=== PATIENT | female | born 2000 | race Caucasian/White ===

== ENCOUNTER 2020-07-31 17:49 | Emergency (ER) | payer OTHER ==
[2020-07-31 18:07] VITALS: BP 102/73; PULSE 110; TEMP 100.8; BMI 27.4
== END 2020-07-31 20:47 | disposition home or self-care (01) ==
LOC: JER 17:49
DX: B34.9 Viral infection, unspecified (principal)
CPT/HCPCS: 71046-TC-FY; 99284-25; C9803; U0003

== ENCOUNTER 2022-05-18 12:17 | Emergency (ER) | payer OTHER ==
[2022-05-18 12:31] VITALS: BP 105/64; PULSE 67; RESP 18; TEMP 98.3; BMI 29.9
[2022-05-18] MEDS ORDERED: KETOROLAC TROMETHAMINE 30 MG/1 ML VIAL IVPUSH ONE (14:24)
[2022-05-18] MEDS ORDERED: SODIUM CHLORIDE 1,000 ML IV STA (14:24)
[2022-05-18] MEDS ORDERED: METOCLOPRAMIDE HCL INJECTION 10 MG/2 ML VIAL IVPUSH ONE (14:24)
[2022-05-18] MEDS ORDERED: METOCLOPRAMIDE HCL INJECTION 10 MG/2 ML VIAL ONE (14:37)
[2022-05-18] MEDS ORDERED: KETOROLAC TROMETHAMINE 30 MG/1 ML VIAL ONE (14:37)
== END 2022-05-18 16:32 | disposition home or self-care (01) ==
LOC: JER 12:17 → JERFT 12:17
PROC: 3E033GC Introduction of Other Therapeutic Substance into Peripheral Vein, Percutaneous Approach (ICD-10-PCS; principal; 2022-05-18)
PROC: 3E0333Z Introduction of Anti-inflammatory into Peripheral Vein, Percutaneous Approach (ICD-10-PCS; 2022-05-18)
PROC: 3E033GC Introduction of Other Therapeutic Substance into Peripheral Vein, Percutaneous Approach (ICD-10-PCS; 2022-05-18)
PROC: 3E0337Z Introduction of Electrolytic and Water Balance Substance into Peripheral Vein, Percutaneous Approach (ICD-10-PCS; 2022-05-18)
DX: J01.90 Acute sinusitis, unspecified (principal)
CPT/HCPCS: 84703; 99284-25

== ENCOUNTER 2023-07-31 22:34 | Observation (INO) | payer SELFPAY ==
[2023-07-31 22:54] VITALS: BMI 32.4
[2023-08-01] MEDS ORDERED: ONDANSETRON 4 MG/2 ML VIAL IVPUSH ONE
[2023-08-01] MEDS ORDERED: SODIUM CHLORIDE 1,000 ML IV STA
[2023-08-01] MEDS ORDERED: ACETAMINOPHEN 1000 MG/100 ML BAG IVPB ONE
[2023-08-01] MEDS ORDERED: ACETAMINOPHEN INJECTION 100 ML IVPB ONE (00:52)
[2023-08-01] MEDS ORDERED: ONDANSETRON 4 MG/2 ML VIAL ONE (00:52)
[2023-08-01] MEDS ORDERED: FAMOTIDINE 20 MG/50 ML IVPB 20 MG/50 ML MG IVPB ONE ×3 (00:52→10:33)
[2023-08-01 00:57] LABS: PH,URINE 6.5 (5.0-8.0); URINE APPEARANCE CLEAR; URINE BILIRUBIN NEGATIVE (NEGATIVE); URINE COLOR YELLOW; URINE GLUCOSE (UA) NEGATIVE (NEGATIVE); URINE KETONE NEGATIVE (NEGATIVE); URINE LEUK ESTERASE NEGATIVE (NEGATIVE); URINE NITRITE NEGATIVE (NEGATIVE); URINE PROTEIN NEGATIVE (NEGATIVE)
[2023-08-01 01:00] LABS: BASO % 0.1 % (0-2.0); EOS % 0.2 % (0-4.5); HEMATOCRIT 43.3 % (32.4-45.2); LYMPH % 5.8 % (8-40); MCH 27.9 pg (25.7-33.7); MCHC 32.5 g/dl (32.0-36.0); MEAN CELL VOLUME 85.9 fl (80-96); MONO % 5.6 % (3.8-10.2); NEUT % 88.3 % (42.8-82.8); RBC 5.04 M/mm3 (3.60-5.2); WHITE BLOOD COUNT 16.9 K/mm3 (4.0-10.0)
[2023-08-01 01:16] LABS: POTASSIUM 4.2 mmol/L (3.5-5.1)
[2023-08-01 01:19] LABS: ALBUMIN 3.5 g/dl (3.4-5.0); BLOOD UREA NITROGEN 11.1 mg/dL (7-18)
[2023-08-01 01:22] LABS: CREATININE 0.8 mg/dL (0.55-1.3)
[2023-08-01 01:23] LABS: BILIRUBIN,TOTAL 0.5 mg/dL (0.2-1); TOT PROT 6.7 g/dl (6.4-8.2)
[2023-08-01] MEDS: SODIUM CHLORIDE 1,000 ML IV SCH (06:55)
[2023-08-01 08:27] LABS: MAGNESIUM 2.2 mg/dL (1.8-2.4)
[2023-08-01 08:31] LABS: PHOSPHOROUS 3.6 mg/dL (2.5-4.9)
[2023-08-01] MEDS ORDERED: FOLIC ACID 1 MG TABLET (FP) ONE (09:03)
[2023-08-01] MEDS ORDERED: THIAMINE HCL 100 MG TABLET (FP) ONE (09:03)
[2023-08-01] MEDS: FOLIC ACID 1 MG TABLET (FP) PO SCH (09:08)
[2023-08-01] MEDS: THIAMINE HCL 100 MG TABLET (FP) PO SCH (09:08)
[2023-08-01] MEDS ORDERED: ONDANSETRON 4 MG/2 ML VIAL IVPUSH PRN (10:35)
[2023-08-01] MEDS: FAMOTIDINE 20 MG/50 ML IVPB 20 MG/50 ML MG IVPB SCH ×2 (10:39→23:12)
[2023-08-01] MEDS ORDERED: CEFTRIAXONE 1 GM in DEXTROSE 5%-WATER - 50 ML IVPB SCH (10:45)
[2023-08-01 11:17] LABS: BASO % 0.1 % (0-2.0); EOS % 0.4 % (0-4.5); HEMATOCRIT 38.9 % (32.4-45.2); HEMOGLOBIN 12.9 GM/dL (10.7-15.3); LYMPH % 15.2 % (8-40); MCH 28.7 pg (25.7-33.7); MCHC 33.1 g/dl (32.0-36.0); MEAN CELL VOLUME 86.5 fl (80-96); MEAN PLT VOLUME 8.8 fl (7.5-11.1); MONO % 11.6 % (3.8-10.2); NEUT % 72.7 % (42.8-82.8); PLATELET COUNT 236 10^3/uL (134-434); RBC 4.49 M/mm3 (3.60-5.2); RDW 14.2 % (11.6-15.6)
[2023-08-01 11:43] LABS: POTASSIUM 4.1 mmol/L (3.5-5.1)
[2023-08-01 11:46] LABS: CALCIUM 8.6 mg/dL (8.5-10.1)
[2023-08-01 11:47] LABS: ALBUMIN 3.2 g/dl (3.4-5.0); BLOOD UREA NITROGEN 5.3 mg/dL (7-18)
[2023-08-01 11:50] LABS: CREATININE 0.6 mg/dL (0.55-1.3)
[2023-08-01 11:51] LABS: BILIRUBIN,TOTAL 0.7 mg/dL (0.2-1)
[2023-08-01 11:52] LABS: TOT PROT 6.2 g/dl (6.4-8.2)
[2023-08-02] MEDS ORDERED: FAMOTIDINE 20 MG/50 ML IVPB 20 MG/50 ML MG IVPB ONE ×2 (00:45→10:09)
[2023-08-02 08:19] LABS: BASO % 0.1 % (0-2.0); EOS % 1.5 % (0-4.5); HEMATOCRIT 38.8 % (32.4-45.2); HEMOGLOBIN 12.9 GM/dL (10.7-15.3); LYMPH % 17.5 % (8-40); MCH 28.6 pg (25.7-33.7); MCHC 33.2 g/dl (32.0-36.0); MEAN CELL VOLUME 86.1 fl (80-96); MEAN PLT VOLUME 9.2 fl (7.5-11.1); MONO % 10.6 % (3.8-10.2); NEUT % 70.3 % (42.8-82.8); PLATELET COUNT 224 10^3/uL (134-434); RBC 4.51 M/mm3 (3.60-5.2); RDW 14.2 % (11.6-15.6); WHITE BLOOD COUNT 10.2 K/mm3 (4.0-10.0)
[2023-08-02 08:40] LABS: POTASSIUM 3.9 mmol/L (3.5-5.1)
[2023-08-02 08:43] LABS: BLOOD UREA NITROGEN 6.5 mg/dL (7-18)
[2023-08-02 08:45] LABS: ALBUMIN 3.3 g/dl (3.4-5.0)
[2023-08-02 08:47] LABS: CREATININE 0.6 mg/dL (0.55-1.3)
[2023-08-02 08:48] LABS: BILIRUBIN,TOTAL 0.3 mg/dL (0.2-1); TOT PROT 6.2 g/dl (6.4-8.2)
[2023-08-02] MEDS ORDERED: THIAMINE HCL 100 MG TABLET (FP) ONE (10:08)
[2023-08-02] MEDS ORDERED: FOLIC ACID 1 MG TABLET (FP) ONE (10:08)
[2023-08-02] MEDS: SODIUM CHLORIDE 1,000 ML IV SCH (10:28)
[2023-08-02] MEDS: FAMOTIDINE 20 MG/50 ML IVPB 20 MG/50 ML MG IVPB SCH (10:29)
[2023-08-02] MEDS: FOLIC ACID 1 MG TABLET (FP) PO SCH (10:29)
[2023-08-02] MEDS: THIAMINE HCL 100 MG TABLET (FP) PO SCH (10:29)
[2023-08-02 15:50] VITALS: BP 116/65; PULSE 81; RESP 18; TEMP 98.4
== END 2023-08-02 16:18 | disposition home or self-care (01) ==
LOC: JER 22:34 → JERBED 08-01 04:07
PROVIDERS: ADMIT Internal Medicine; ATTEND Internal Medicine
CPT/HCPCS: 0241U-QW; 36415; 76700-TC; 76817-TC; 80053; 80061; 81003; 83036; 83690; 83735; 84100; 84702; 84703; 85025; 86705; 86708; 87086; 87517; 93005; 93010; 99285-25; G0378

== ENCOUNTER 2025-03-15 19:23 | Emergency (ER) | payer OTHER ==
[2025-03-15 19:36] VITALS: BP 109/71; PULSE 82; RESP 18; TEMP 98.7; BMI 34.6
[2025-03-15] MEDS ORDERED: IBUPROFEN 600 MG TABLET (FP) PO ONE (21:33)
[2025-03-15] MEDS ORDERED: LORATADINE 10 MG TABLET ONE (21:33)
[2025-03-15] MEDS ORDERED: AMOX TR/POT CLAV 875MG/125MG TABLETS (FP) ONE (21:33)
[2025-03-15] MEDS: LORATADINE 10 MG TABLET PO ONE (21:36)
[2025-03-15] MEDS: AMOX TR/POT CLAV 875MG/125MG TABLETS (FP) PO ONE (21:36)
[2025-03-15] MEDS: IBUPROFEN 600 MG TABLET (FP) PO ONE (21:36)
== END 2025-03-15 21:39 | disposition home or self-care (01) ==
LOC: JERFT 19:23
DX: J01.90 Acute sinusitis, unspecified (principal); R51.9 Headache, unspecified; J02.9 Acute pharyngitis, unspecified; R49.0 Dysphonia; R06.00 Dyspnea, unspecified; H92.02 Otalgia, left ear
CPT/HCPCS: 87637-QW; 99283-25